=== PATIENT | male | born 1960 | race Caucasian/White ===

== ENCOUNTER 2020-04-11 05:18 | Inpatient (IN) | payer BC ==
[~2020-04-11] VITALS: Ht 180.3 cm; Wt 72.0 kg
[~2020-04-11 05:18] MED LIST: PRED5TAB PO; PROB500T22 PO
[2020-04-11] MEDS ORDERED: LACTATED RINGERS 1,000 ML IV SCH (06:04)
[2020-04-11 06:06] VITALS: BP 164/84
[2020-04-11] MEDS ORDERED: CHLORHEXIDINE 15 ML UDC ONE (06:11)
[2020-04-11] MEDS ORDERED: CHLORHEXIDINE 15 ML UDC MM ONE (06:30)
[2020-04-11] MEDS ORDERED: MIDAZOLAM 1 MG/ML, 2ML ONE (06:54)
[2020-04-11] MEDS ORDERED: FENTANYL PF 250 MCG/5ML ONE (06:54)
[2020-04-11] MEDS ORDERED: OPIUM/BELLADONNA SUPP.RECT 16.2-60 MG ONE ×2 (07:07→12:22)
[2020-04-11] MEDS ORDERED: BUPIVACAINE/PF-EPI 0.25% 1:200K ONE (07:07)
[2020-04-11] MEDS ORDERED: DEXAMETHASONE 4 MG/ML, 1ML ONE (07:23)
[2020-04-11] MEDS ORDERED: ROCURONIUM 10 MG/ML,10ML ONE (07:23)
[2020-04-11] MEDS ORDERED: SUCCINYLCHOLINE 20 MG/ML, 10ML ONE (07:23)
[2020-04-11] MEDS ORDERED: PROPOFOL 10 MG/ML, 20ML ONE (07:23)
[2020-04-11] MEDS ORDERED: ONDANSETRON 2MG/ML, 2ML ONE (07:23)
[2020-04-11] MEDS ORDERED: CEFAZOLIN 1,000 MG ONE (07:23)
[2020-04-11] MEDS ORDERED: FENTANYL PF 100 MCG/2ML ONE ×2 (11:55→12:32)
[2020-04-11] MEDS ORDERED: OXYcodone 5 MG/5 ML ORAL.SOL UDC ONE (11:55)
[2020-04-11] MEDS: FENTANYL PF 100 MCG/2ML IV PRN ×3 (11:56→12:34)
[2020-04-11] MEDS ORDERED: DIAZEPAM 5 MG/ML, 2ML ONE (11:58)
[2020-04-11] MEDS ORDERED: MEPERIDINE/PF 25MG/ML,1ML ONE ×2 (11:58→12:39)
[2020-04-11] MEDS ORDERED: PROMETHAZINE 25 MG/ML, 1ML IV PRN (12:00)
[2020-04-11] MEDS ORDERED: OXYcodone 5 MG/5 ML ORAL.SOL UDC PO PRN (12:00)
[2020-04-11] MEDS ORDERED: ONDANSETRON 2MG/ML, 2ML IVPush PRN (12:00)
[2020-04-11] MEDS ORDERED: ALBUTEROL SULFATE 2.5 MG/3 ML NPPB PRN (12:00)
[2020-04-11] MEDS ORDERED: DIAZEPAM 5 MG/ML, 2ML IV PRN ×2 (12:00)
[2020-04-11] MEDS: MEPERIDINE/PF 25MG/0.5ML IVPush PRN ×2 (12:00→12:40)
[2020-04-11] MEDS ORDERED: METOCLOPRAMIDE 5 MG/ML, 2ML IV PRN (12:00)
[2020-04-11] MEDS ORDERED: hydrALAzine 20 MG/ML, 1ML IV PRN (12:00)
[2020-04-11] MEDS ORDERED: HYDROmorphone 1 MG/ML, 1ML INJ IV PRN (12:00)
[2020-04-11] MEDS ORDERED: LABETALOL 5MG/ML, 20ML IV PRN (12:00)
[2020-04-11] MEDS ORDERED: KETOROLAC 30 MG/1 ML IV PRN (12:00)
[2020-04-11] MEDS ORDERED: OPIUM/BELLADONNA SUPP.RECT 16.2-60 MG PR PRN ×2 (12:30→16:30)
[2020-04-11] MEDS ORDERED: DIAZEPAM 5 MG/ML, 2ML IVPush PRN (13:00)
[2020-04-11] MEDS ORDERED: morphine SULFATE 10 MG/ML, 1ML ONE (13:40)
[2020-04-11] MEDS ORDERED: ONDANSETRON 2MG/ML, 2ML IV PRN (16:30)
[2020-04-11] MEDS ORDERED: MORPHINE SULFATE 4 MG/ML, 1ML IV PRN (16:30)
[2020-04-11] MEDS: OXYcodone IR 5MG TABLET PO PRN ×2 (16:36→21:07)
[2020-04-11 18:45] VITALS: BP 134/88
[2020-04-11] MEDS: ACETAMINOPHEN 500 MG TABLET PO SCH (21:05)
[2020-04-11] MEDS: D5%-0.45NACL+KCL 20MEQ 1,000 ML IV SCH (21:09)
[2020-04-11] MEDS: FAMOTIDINE 20 MG/2 ML IVPush SCH (21:11)
[2020-04-11 22:45] VITALS: BP 120/70
[2020-04-12 00:57] VITALS: BP 115/68
[2020-04-12] MEDS: ACETAMINOPHEN 500 MG TABLET PO SCH ×3 (03:25→12:55)
[2020-04-12] MEDS: OXYcodone IR 5MG TABLET PO PRN ×3 (03:25→12:56)
[2020-04-12 04:20] VITALS: BP 114/67
[2020-04-12] MEDS: D5%-0.45NACL+KCL 20MEQ 1,000 ML IV SCH (04:55)
[2020-04-12 05:49] LABS: ANION GAP 6 mmol/L (5-15); CALCIUM 8.7 mg/dL (8.5-10.1); CHLORIDE 106 mmol/L (98-107); CREATININE 0.88 mg/dL (0.7-1.3)
[2020-04-12 07:45] VITALS: BP 118/68
[2020-04-12] MEDS ORDERED: ENOXAPARIN 40 MG/0.4 ML SQ SCH (08:00)
[2020-04-12] MEDS: FAMOTIDINE 20 MG/2 ML IVPush SCH (08:37)
[2020-04-12 12:27] VITALS: BP 132/75
[2020-04-12] MEDS ORDERED: OXYC-302 PO (14:12)
== END 2020-04-13 10:22 | disposition home or self-care (01) | DRG 708 ==
LOC: OUT 05:18 → 4NE 18:31 → OUT 23:19 → DCLOUNGE 04-12 14:31
PROVIDERS: ADMIT Urology; ATTEND Urology
PROC: 8E0W0CZ Robotic Assisted Procedure of Trunk Region, Open Approach (ICD-10-PCS; 2020-04-11)
PROC: 0VT00ZZ Resection of Prostate, Open Approach (ICD-10-PCS; principal; 2020-04-11 07:30)
DX: C61 Malignant neoplasm of prostate (principal); Z20.828 Contact with and (suspected) exposure to other viral communicable diseases; Z90.89 Acquired absence of other organs
CPT/HCPCS: 36415; 80048; 80053; 85014; 85018; 85025; 86850; 86900; 87635; 88309; 93005; C1729; G0378; J0690; J1100; J1650; J2175; J2250; J2405; J2704; J3010; C1760; J0330; J3480; J3490; J7120

== ENCOUNTER → 2020-04-18 | Outpatient (CLI) | payer BC ==
[~2020-04-18] MED LIST changes: +OXYC-302 PO
== END | disposition home or self-care (01) ==
LOC: RAD 12:42
PROVIDERS: ATTEND Urology
DX: C61 Malignant neoplasm of prostate (principal); N32.89 Other specified disorders of bladder; Z79.899 Other long term (current) drug therapy; Z72.89 Other problems related to lifestyle; Z82.49 Family history of ischemic heart disease and other diseases of the circulatory system
CPT/HCPCS: 51600; 74430; Q9958